=== PATIENT | male | born 1990 | race Caucasian/White ===

== ENCOUNTER 2020-02-05 19:05 | Emergency (ER) | payer OTHER ==
[~2020-02-05] VITALS: Ht 172.7 cm; Wt 73.9 kg
[2020-02-05 20:00] LABS: UA SPECIFIC GRAVITY 1.025 (1.005-1.035); microscopic required? YES; urine erythrocyte TRACE (NEGATIVE)
[2020-02-05 20:02] LABS: BASOPHIL % 0.5 % (0-2); PLATELET COUNT 334 x10^3mcL (130-400)
[2020-02-05 20:06] LABS: RED CELL DISTRIBUTION WIDTH 16.1 % (11.5-14.5)
[2020-02-05 20:12] LABS: CALCIUM 8.9 mg/dL (8.5-10.1); CARBON DIOXIDE 21.3 mmol/L (21-32); CREATININE SERUM 1.6 mg/dL (0.7-1.3)
[2020-02-05 20:15] LABS: AMPHETAMINE QUAL UR NONE DETECTED (See below)
[2020-02-05 20:24] LABS: ALBUMIN 2.6 g/dL (3.4-5.0); BILIRUBIN TOTAL 0.1 mg/dL (0.20-1.00); MAGNESIUM 2.3 mg/dL (1.8-2.4); T4(THYROXINE) 5.8 ug/dL (4.7-13.3); TOTAL PROTEIN, SERUM 7.3 g/dL (6.4-8.2)
[2020-02-05 21:42] VITALS: BP 120/76
== END 2020-02-05 21:43 | disposition home or self-care (01) ==
LOC: ED 19:05
PROVIDERS: Emergency Medicine
DX: R55 Syncope and collapse (principal); E11.65 Type 2 diabetes mellitus with hyperglycemia
CPT/HCPCS: 36415; 82962; 83880; Q0092